=== PATIENT | male | born 1990 | race Caucasian/White ===

== ENCOUNTER 2017-08-29 09:49 | Emergency (ER) | payer MEDICAID ==
[2017-08-29] MEDS ORDERED: HYDROmorphone 1 MG/ML Syringe IVPUSH ONE (10:10)
[2017-08-29] MEDS ORDERED: Sodium Chloride 0.9% 10 ML Syringe FLUSH PRN (10:10)
[2017-08-29] MEDS ORDERED: Ondansetron 4 MG/2 ML SDV IVPUSH ONE (10:11)
[2017-08-29] MEDS ORDERED: Sodium Chloride 0.9% 1,000 ML IV SCH ×2 (10:15→11:30)
[2017-08-29] MEDS ORDERED: HYDROmorphone 1 MG/ML Syringe IM ONE (10:17)
--- NOTE | 2017-08-29 10:24 | EDM.PDOC ---
ED HPI GENERAL MEDICAL PROBLEM - General Chief Complaint: Flank Pain Stated Complaint: LEFT FLANK PAIN Time Seen by Provider: 08/29/17 10:23 Source of Information: Reports: Patient, Family History Limitations: Reports: No Limitations - History of Present Illness INITIAL COMMENTS - FREE TEXT/NARRATIVE: pt arrived with pain in the left flank. He states the pain started about 8 am. He is rating his pain at a 10. He has hd many stones in the past , the last being a few monthes ago. Onset: Today, Sudden Duration: Hour(s): Location: Reports: Abdomen Quality: Reports: Sharp Associated Symptoms: Reports: No Other Symptoms Left Flank Pain Score (Numeric/FACES): 10 - Related Data Allergies Allergy/AdvReac Type Severity Reaction Status Date / Time Sulfa (Sulfonamide Allergy Other Verified 08/29/17 10:25 Antibiotics) ED ROS GENERAL - Review of Systems Review Of Systems: See Below Constitutional: Reports: No Symptoms HEENT: Reports: No Symptoms Respiratory: Reports: No Symptoms Cardiovascular: Reports: No Symptoms Endocrine: Reports: No Symptoms GI/Abdominal: Reports: Other (pt has severe left flank pain. ) : Reports: Flank Pain Musculoskeletal: Reports: No Symptoms Skin: Reports: No Symptoms Neurological: Reports: No Symptoms Psychiatric: Reports: No Symptoms ED EXAM, RENAL/ - Physical Exam Exam: See Below Text/Narrative:: Pt arrived with pain in the left kidney--flank area and left groin which came on very suddenly. Exam Limited By: No Limitations General Appearance: Alert, Anxious, Severe Distress Ears: Normal TMs Nose: Normal Inspection Throat/Mouth: Normal Inspection Head: Atraumatic Neck: Normal Inspection Respiratory/Chest: No Respiratory Distress Cardiovascular: Regular Rate, Rhythm GI/Abdominal: Other (pt has left flank pain. He is tender in the left groin area. ) (Male) Exam: Deferred Rectal (Males) Exam: Deferred Back Exam: Normal Inspection, CVA Tenderness (L), Other ( Left groin tenderness. ) Extremities: Normal Inspection Neurological: Alert, Oriented, Normal Cognition Course - Vital Signs Last Recorded V/S: Last Vital Signs Temp 35.6 C 08/29/17 10:25 Pulse 70 08/29/17 11:18 Resp 20 08/29/17 11:18 BP 169/102 H 08/29/17 11:18 Pulse Ox 96 08/29/17 11:18 - Orders/Labs/Meds Orders: Active Orders 24 hr Category Date Time Status Saline Lock Insert [OM.PC] Routine Oth 08/29/17 10:10 Ordered Labs: Laboratory Tests 08/29/17 08/29/17 08/29/17 Range/Units 10:20 10:20 10:21 WBC 7.3 (4.5-11.0) K/uL RBC 5.68 (4.30-5.90) M/uL Hgb 17.1 H (12.0-15.0) g/dL Hct 47.3 (40.0-54.0) % MCV 83 (80-98) fL MCH 30 (27-31) pg MCHC 36 (32-36) % Plt Count 278 (150-400) K/uL Neut % (Auto) 72 H (36-66) % Lymph % (Auto) 17 L (24-44) % [place] % (Auto) 9 H (2-6) % Eos % (Auto) 2 (2-4) % Baso % (Auto) 0 (0-1) % Sodium 141 (140-148) mmol/L Potassium 3.7 (3.6-5.2) mmol/L Chloride 104 (100-108) mmol/L Carbon Dioxide 28 (21-32) mmol/L Anion Gap 9.5 (5.0-14.0) mmol/L BUN 13 (7-18) mg/dL Creatinine 1.3 (0.8-1.3) mg/dL Est Cr Clr Drug Dosing 88.13 mL/min Estimated GFR (MDRD) > 60 (>60) Glucose 133 H (74-106) mg/dL Uric Acid 5.3 (3.5-7.2) mg/dL Calcium 9.0 (8.5-10.1) mg/dL Total Bilirubin 0.5 (0.2-1.0) mg/dL AST 21 (15-37) U/L ALT 32 (12-78) U/L Alkaline Phosphatase 105 (46-116) U/L Total Protein 7.8 (6.4-8.2) g/dL Albumin 4.3 (3.4-5.0) g/dL Globulin 3.5 (2.3-3.5) g/dL Albumin/Globulin Ratio 1.2 (1.2-2.2) Urine Color Urine Appearance Urine pH (4.5-8.0) Ur Specific [place] (1.008-1.030) Urine Protein (NEGATIVE) mg/dL Urine Glucose (UA) (NEGATIVE) mg/dL Urine Ketones (NEGATIVE) mg/dL Urine Occult Blood (NEGATIVE) Urine Nitrite (NEGAITVE) Urine Bilirubin (NEGATIVE) Urine Urobilinogen (NORMAL) mg/dL Ur Leukocyte Esterase (NEGATIVE) Urine RBC (0-5) Urine WBC (0-5) Ur Epithelial Cells Amorphous Sediment Urine Bacteria Urine Mucus Urine Other 08/29/17 Range/Units 11:07 WBC (4.5-11.0) K/uL RBC (4.30-5.90) M/uL Hgb (12.0-15.0) g/dL Hct (40.0-54.0) % MCV (80-98) fL MCH (27-31) pg MCHC (32-36) % Plt Count (150-400) K/uL Neut % (Auto) (36-66) % Lymph % (Auto) (24-44) % [place] % (Auto) (2-6) % Eos % (Auto) (2-4) % Baso % (Auto) (0-1) % Sodium (140-148) mmol/L Potassium (3.6-5.2) mmol/L Chloride (100-108) mmol/L Carbon Dioxide (21-32) mmol/L Anion Gap (5.0-14.0) mmol/L BUN (7-18) mg/dL Creatinine (0.8-1.3) mg/dL Est Cr Clr Drug Dosing mL/min Estimated GFR (MDRD) (>60) Glucose (74-106) mg/dL Uric Acid (3.5-7.2) mg/dL Calcium (8.5-10.1) mg/dL Total Bilirubin (0.2-1.0) mg/dL AST (15-37) U/L ALT (12-78) U/L Alkaline Phosphatase (46-116) U/L Total Protein (6.4-8.2) g/dL Albumin (3.4-5.0) g/dL Globulin (2.3-3.5) g/dL Albumin/Globulin Ratio (1.2-2.2) Urine Color Yellow Urine Appearance Slightly cloudy Urine pH 5.0 (4.5-8.0) Ur Specific [place] 1.030 (1.008-1.030) Urine Protein Trace (NEGATIVE) mg/dL Urine Glucose (UA) Normal (NEGATIVE) mg/dL Urine Ketones Negative (NEGATIVE) mg/dL Urine Occult Blood Large (NEGATIVE) Urine Nitrite Negative (NEGAITVE) Urine Bilirubin Negative (NEGATIVE) Urine Urobilinogen 1 (NORMAL) mg/dL Ur Leukocyte Esterase Negative (NEGATIVE) Urine RBC 5-10 H (0-5) Urine WBC Not seen (0-5) Ur Epithelial Cells Few Amorphous Sediment Moderate Urine Bacteria Not seen Urine Mucus Moderate Urine Other See note Meds: Medications Discontinued Medications Generic Name Dose Route Start Last Admin Trade Name Freq PRN Reason Stop Dose Admin Hydromorphone HCl 1 mg 08/29/17 10:10 Dilaudid IVPUSH 08/29/17 10:11 ONETIME ONE Hydromorphone HCl 1 mg 08/29/17 10:17 08/29/17 10:34 Dilaudid IM 08/29/17 10:18 1 mg ONETIME ONE Administration Hydromorphone HCl 0.5 mg 08/29/17 10:48 08/29/17 10:52 Dilaudid IVPUSH 08/29/17 10:49 0.5 mg ONETIME ONE Administration Hydromorphone HCl 0.5 mg 08/29/17 11:12 08/29/17 11:17 Dilaudid IVPUSH 08/29/17 11:13 0.5 mg ONETIME ONE Administration Sodium Chloride 1,000 mls @ 999 mls/hr 08/29/17 10:15 08/29/17 10:45 Normal Saline IV 999 mls/hr ASDIRECTED SHARAD Administration Sodium Chloride 1,000 mls @ 999 mls/hr 08/29/17 11:30 08/29/17 11:48 Normal Saline IV 999 mls/hr ASDIRECTED SHARAD Administration Ketorolac Tromethamine 30 mg 08/29/17 11:36 08/29/17 11:43 Toradol IVPUSH 08/29/17 11:37 30 mg ONETIME ONE Administration Ondansetron HCl 4 mg 08/29/17 10:11 08/29/17 10:54 Zofran IVPUSH 08/29/17 10:12 4 mg ONETIME ONE Administration Sodium Chloride 10 ml 08/29/17 10:10 08/29/17 11:47 Saline Flush FLUSH 10 ml ASDIRECTED PRN Administration Keep Vein Open Tamsulosin HCl 0.4 mg 08/29/17 11:38 08/29/17 11:43 Flomax PO 08/29/17 11:39 0.4 mg ONETIME ONE Administration - Re-Assessments/Exams Free Text/Narrative Re-Assessment/Exam: 08/29/17 12:11 pt arrived with severe pain in left flank area. He received 2 mg of dilaudid with minimal relief. He had a cat scan which revealed. a 3mm stone just outside the bladder Departure - Departure Time of Disposition: 11:20 Disposition: Home, Self-Care 01 Condition: Fair Clinical Impression: Ureteral calculi - Discharge Information Instructions: Kidney Stones, [id number] Referrals: PCP,None [Primary Care Provider] - Forms: ED Department Discharge Care Plan Goals: push fluids,--water, watch diet, flomax .4 daily until stone is passed , tordol 10mg q6h as needed for pain, strain all urine. rtc if pain becomes intolerable. - My Orders Last 24 Hours: My Active Orders 08/29/17 10:10 Saline Lock Insert [OM.PC] Routine - Assessment/Plan Last 24 Hours: My Active Orders 08/29/17 10:10 Saline Lock Insert [OM.PC] Routine
[2017-08-29] MEDS ORDERED: HYDROmorphone 0.5 MG/0.5 ML Syringe IVPUSH ONE ×2 (10:48→11:12)
[2017-08-29] MEDS ORDERED: Ketorolac 30 MG/ML SDV IVPUSH ONE (11:36)
[2017-08-29] MEDS ORDERED: Tamsulosin 0.4 MG Cap.ER PO ONE (11:38)
--- NOTE | 2017-08-29 11:41 | CT ---
Abdomen Pelvis wo Cont HISTORY: Left flank pain. Dose: Total DLP 924. COMPARISON: None FINDINGS: There is moderate left-sided hydronephrosis and hydroureter. There is an obstructing 2 to 3 mm stone in the very distal left ureter approximately 1 cm from the bladder seen on axial image 132 and coronal image 57. There is additional nonobstructing bilateral kidney stones ranging in size from 2 to 4 mm slightly gr eater on the left. The remainder of the abdominal and pelvic viscera is unremarkable. The appendix un remarkable. Impression: 2 to 3 mm obstructing stone very distal left ureter with moderate left-sided hydronephrosis.
== END 2017-08-29 12:50 | disposition home or self-care (01) ==
LOC: JP.ED 09:49
DX: N13.2 Hydronephrosis with renal and ureteral calculous obstruction (principal); Z88.2 Allergy status to sulfonamides
CPT/HCPCS: 36415; 74176; 80053; 81001; 84550; 85025; 96361; 96372; 96374; 96375; 96376; 99283; 99284; A9270; J1170; J1885; J2405; J7040; J7050

== ENCOUNTER 2017-09-03 17:52 | Emergency (ER) | payer MEDICAID ==
[2017-09-03] MEDS: Sodium Chloride 0.9% 1,000 ML IV SCH ×2 (20:00→22:12)
[2017-09-03] MEDS ORDERED: Ondansetron 4 MG/2 ML SDV IVPUSH ONE (20:23)
[2017-09-03] MEDS ORDERED: HYDROmorphone 1 MG/ML Syringe IVPUSH ONE ×2 (20:23→21:55)
[2017-09-03] MEDS ORDERED: Sodium Chloride 0.9% 1,000 ML IV SCH ×2 (20:30→23:45)
[2017-09-03] MEDS ORDERED: Ketorolac 30 MG/ML SDV IVPUSH ONE (23:33)
--- NOTE | 2017-09-04 01:17 | EDM.PDOC ---
ED HPI GENERAL MEDICAL PROBLEM - General Chief Complaint: Genitourinary Problem Stated Complaint: KIDNEY STONE Time Seen by Provider: 09/03/17 19:47 Source of Information: Reports: Patient History Limitations: Reports: No Limitations - History of Present Illness Onset: Gradual Onset Date: 08/29/17 Duration: Day(s): (6), Getting Worse, Waxing/Waning Location: Reports: Abdomen, Other (bilateral flank pain) Quality: Reports: Sharp, Stabbing, Throbbing Severity: Severe (Reports pain so severe was vomiting.) Improves with: Reports: None Worsens with: Reports: None Associated Symptoms: Reports: Loss of Appetite, Nausea/Vomiting Treatments [employer]: Reports: Other (see below) (Flomax daily, pain medication, drinking 1 gallon of water per day to dilute and hopefully expel the stones on their own) Left Flank Pain Score (Numeric/FACES): 6 - Related Data Allergies Allergy/AdvReac Type Severity Reaction Status Date / Time Sulfa (Sulfonamide Allergy Other Verified 09/03/17 19:48 Antibiotics) Past Medical History Respiratory History: Reports: Asthma, Other (See Below) Other Respiratory History: seasonal allergies Genitourinary History: Reports: Other (See Below) Other Genitourinary History: kidney stone - Infectious Disease History Infectious Disease History: Reports: Chicken Pox Social & Family History - Family History Family Medical History: Unobtainable - Tobacco Use Smoking Status *Q: Unknown Ever Smoked Second Hand Smoke Exposure: No - Caffeine Use Caffeine Use: Reports: Coffee Other Caffeine Use: not daily - Recreational Drug Use Recreational Drug Use: No - Living Situation & Occupation Living situation: Reports: with Significant Other Occupation: Employed ED ROS GENERAL - Review of Systems Review Of Systems: See Below Constitutional: Reports: Other (bilateral flank pain level left abdominal pain) HEENT: Reports: No Symptoms Respiratory: Reports: No Symptoms Cardiovascular: Reports: No Symptoms Endocrine: Reports: No Symptoms GI/Abdominal: Reports: Abdominal Pain, Nausea, Vomiting : Reports: Dysuria, Flank Pain, Frequency, Hematuria, Pain, Urgency Musculoskeletal: Reports: Back Pain (flank pain) Skin: Reports: No Symptoms Neurological: Reports: No Symptoms Psychiatric: Reports: No Symptoms Hematologic/Lymphatic: Reports: No Symptoms Immunologic: Reports: No Symptoms ED EXAM, GI/ABD - Physical Exam Exam: See Below Exam Limited By: No Limitations General Appearance: Alert, WD/WN, Moderate Distress (pacing in the room due to pain) Eyes: Bilateral: Normal Appearance Ears: Normal External Exam, Normal Canal, Hearing Grossly Normal, Normal TMs Nose: Normal Inspection, Normal Mucosa, No Blood Throat/Mouth: Normal Inspection, Normal Lips, Normal Teeth, Normal Gums, Normal Oropharynx, Normal Voice, No Airway Compromise Head: Atraumatic, Normocephalic Neck: Normal Inspection, Supple, Non-Tender, Full Range of Motion Respiratory/Chest: No Respiratory Distress, Lungs Clear, Normal Breath Sounds, No Accessory Muscle Use, Chest Non-Tender Cardiovascular: Normal Peripheral Pulses, Regular Rate, Rhythm, No Edema, No Gallop, No JVD, No Murmur, No Rub (Male) Exam: Deferred Rectal (Males) Exam: Deferred Back Exam: CVA Tenderness (R), CVA Tenderness (L), Muscle Spasm Extremities: Normal Inspection, Normal Range of Motion, Non-Tender Neurological: Alert, Oriented, CN II-XII Intact, Normal Cognition, Normal Gait, Normal Reflexes, No Motor/Sensory Deficits Psychiatric: Normal Affect, Normal Mood Skin Exam: Warm, Normal Color, No Rash Lymphatic: No Adenopathy Course - Vital Signs Last Recorded V/S: Last Vital Signs Temp 36.7 C 09/03/17 21:24 Pulse 67 09/03/17 21:24 Resp 14 09/03/17 21:24 BP 130/74 09/03/17 21:24 Pulse Ox 95 09/03/17 21:24 - Orders/Labs/Meds Orders: Active Orders 24 hr Category Date Time Status Kidney Stone Protocol [CT] Stat Exams 09/03/17 20:24 Taken Sodium Chloride 0.9% [Normal Saline] 1,000 ml Med 09/03/17 20:00 Active IV ASDIRECTED Sodium Chloride 0.9% [Normal Saline] 1,000 ml Med 09/03/17 20:30 Active IV ASDIRECTED Sodium Chloride 0.9% [Normal Saline] 1,000 ml Med 09/03/17 23:45 Active IV ASDIRECTED Medication Orders Sodium Chloride (Normal Saline) 1,000 mls @ 999 mls/hr IV ASDIRECTED SHARAD Last Admin: 09/03/17 22:12 Dose: 999 mls/hr Infusion: 09/03/17 21:01 Dose: 999 mls/hr Admin: 09/03/17 20:00 Dose: 999 mls/hr Sodium Chloride (Normal Saline) 1,000 mls @ 999 mls/hr IV ASDIRECTED SHARAD Last Admin: 09/03/17 22:13 Dose: 999 mls/hr Sodium Chloride (Normal Saline) 1,000 mls @ 150 mls/hr IV ASDIRECTED SHARAD Last Admin: 09/03/17 23:55 Dose: 150 mls/hr Labs: Laboratory Tests 09/03/17 09/03/17 09/03/17 Range/Units 19:35 22:15 22:15 WBC 7.0 (4.5-11.0) K/uL RBC 4.75 (4.30-5.90) M/uL Hgb 14.5 D (12.0-15.0) g/dL Hct 39.2 L (40.0-54.0) % MCV 83 (80-98) fL MCH 31 (27-31) pg MCHC 37 H (32-36) % Plt Count 213 (150-400) K/uL Neut % (Auto) 67 H (36-66) % Lymph % (Auto) 19 L (24-44) % [place] % (Auto) 10 H (2-6) % Eos % (Auto) 3 (2-4) % Baso % (Auto) 0 (0-1) % Sodium 138 L (140-148) mmol/L Potassium 3.4 L (3.6-5.2) mmol/L Chloride 104 (100-108) mmol/L Carbon Dioxide 26 (21-32) mmol/L Anion Gap 11.4 (5.0-14.0) mmol/L BUN 11 (7-18) mg/dL Creatinine 0.9 (0.8-1.3) mg/dL Est Cr Clr Drug Dosing 129.30 mL/min Estimated GFR (MDRD) > 60 (>60) Glucose 90 (74-106) mg/dL Calcium 8.4 L (8.5-10.1) mg/dL Urine Color Yellow Urine Appearance Clear Urine pH 6.5 (4.5-8.0) Ur Specific [place] 1.010 (1.008-1.030) Urine Protein Negative (NEGATIVE) mg/dL Urine Glucose (UA) Normal (NEGATIVE) mg/dL Urine Ketones Negative (NEGATIVE) mg/dL Urine Occult Blood Moderate (NEGATIVE) Urine Nitrite Negative (NEGAITVE) Urine Bilirubin Negative (NEGATIVE) Urine Urobilinogen Normal (NORMAL) mg/dL Ur Leukocyte Esterase Negative (NEGATIVE) Urine RBC Not seen (0-5) Urine WBC 0-5 (0-5) Ur Epithelial Cells Rare Amorphous Sediment Not seen Urine Bacteria Rare Urine Mucus Not seen Meds: Medications Generic Name Dose Route Start Last Admin Trade Name Freq PRN Reason Stop Dose Admin Sodium Chloride 1,000 mls @ 999 mls/hr 09/03/17 20:00 09/03/17 22:12 Normal Saline IV 999 mls/hr ASDIRECTED SHARAD Administration Sodium Chloride 1,000 mls @ 999 mls/hr 09/03/17 20:30 09/03/17 22:13 Normal Saline IV 999 mls/hr ASDIRECTED SHARAD Administration Sodium Chloride 1,000 mls @ 150 mls/hr 09/03/17 23:45 09/03/17 23:55 Normal Saline IV 150 mls/hr ASDIRECTED SHARAD Administration Discontinued Medications Generic Name Dose Route Start Last Admin Trade Name Freq PRN Reason Stop Dose Admin Hydromorphone HCl 1 mg 09/03/17 20:23 09/03/17 20:48 Dilaudid IVPUSH 09/03/17 20:24 1 mg ONETIME ONE Administration Hydromorphone HCl 1 mg 09/03/17 21:55 09/03/17 22:12 Dilaudid IVPUSH 09/03/17 21:56 1 mg ONETIME ONE Administration Ketorolac Tromethamine 30 mg 09/03/17 23:33 09/03/17 23:57 Toradol IVPUSH 09/03/17 23:34 30 mg ONETIME ONE Administration Ondansetron HCl 4 mg 09/03/17 20:23 09/03/17 20:49 Zofran IVPUSH 09/03/17 20:24 4 mg ONETIME ONE Administration - Re-Assessments/Exams Free Text/Narrative Re-Assessment/Exam: while in the emergency room had labs, imaging, IV fluids, pain control, Departure - Departure Time of Disposition: 01:22 Disposition: DC/Tfer to Acute Hospital 02 Condition: Good Clinical Impression: Kidney stone, Ureteral calculi - Discharge Information Referrals: PCP,None [Primary Care Provider] - Care Plan Goals: transferred to [facility] for an admission and further care. Dr. Michelle accepting. Consult with Dr. Vogt, urologist. - Problem List & Annotations (1) Hydronephrosis with renal and ureteral calculous obstruction SNOMED Code(s): 199297538 Code(s): N13.2 - HYDRONEPHROSIS WITH RENAL AND URETERAL CALCULOUS OBSTRUCTION Status: Acute Priority: High Current Visit: Yes (2) Ureteral calculi SNOMED Code(s): 30150974 Code(s): N20.1 - CALCULUS OF URETER Status: Acute Priority: High Current Visit: Yes (3) Kidney stone SNOMED Code(s): 03125763 Code(s): N20.0 - CALCULUS OF KIDNEY Status: Acute Priority: High Current Visit: Yes - Problem List Review Problem List Initiated/Reviewed/Updated: Yes - My Orders Last 24 Hours: My Active Orders 09/03/17 20:00 Sodium Chloride 0.9% [Normal Saline] 1,000 ml IV ASDIRECTED 09/03/17 20:24 Kidney Stone Protocol [CT] Stat 09/03/17 20:30 Sodium Chloride 0.9% [Normal Saline] 1,000 ml IV ASDIRECTED 09/03/17 23:45 Sodium Chloride 0.9% [Normal Saline] 1,000 ml IV ASDIRECTED - Assessment/Plan Last 24 Hours: My Active Orders 09/03/17 20:00 Sodium Chloride 0.9% [Normal Saline] 1,000 ml IV ASDIRECTED 09/03/17 20:24 Kidney Stone Protocol [CT] Stat 09/03/17 20:30 Sodium Chloride 0.9% [Normal Saline] 1,000 ml IV ASDIRECTED 09/03/17 23:45 Sodium Chloride 0.9% [Normal Saline] 1,000 ml IV ASDIRECTED Plan: transferred to [facility] for an admission and further care. -Dr. Michelle accepting. -Consult with Dr. Vogt, urologist
== END 2017-09-04 02:47 ==
LOC: JP.ED 17:52
DX: N13.2 Hydronephrosis with renal and ureteral calculous obstruction (principal); Z88.2 Allergy status to sulfonamides
CPT/HCPCS: 36415; 74176; 80048; 81001; 85025; 96361; 96374; 96375; 96376; 99284; 99285; J1170; J1885; J2405; J7040

== ENCOUNTER 2023-01-16 07:50 | Day surgery (SDC) | payer OTHER ==
[2023-01-16] MEDS: Sodium Chloride 0.9% 1,000 ML IV SCH (08:42)
[2023-01-16] MEDS ORDERED: Propofol 200 MG/20 ML SDV ONE (08:53)
[2023-01-16] MEDS ORDERED: Midazolam 1 MG/ML 2 ML SDV ONE (08:53)
[2023-01-16] MEDS ORDERED: fentaNYL 100 MCG/2 ML SDV ONE (08:53)
== END 2023-01-16 11:29 | disposition home or self-care (01) ==
LOC: JP.SDS 07:50
PROVIDERS: ATTEND Surgery
DX: K29.70 Gastritis, unspecified, without bleeding (principal); K21.9 Gastro-esophageal reflux disease without esophagitis; J45.909 Unspecified asthma, uncomplicated; Z88.2 Allergy status to sulfonamides
CPT/HCPCS: 88305; J2250; J2704; J3010; J7030